=== PATIENT | male | born 1990 | race Hispanic/Latino ===

== ENCOUNTER 2020-05-05 15:02 | Emergency (ER) | payer SELFPAY ==
[~2020-05-05] VITALS: Ht 160 cm; Wt 72.7 kg
[2020-05-05 16:35] LABS: HEMATOCRIT 38.9 % (39.0-50.0); HEMOGLOBIN 13.2 g/dl (14.0-18.0); IMMATURE GRANULOCYTES 0.4 % (0.0-5.0); MEAN CORPUSCULAR HGB 31.2 pG CALC (26.0-32.0); MEAN CORPUSCULAR HGB CONC 33.9 g/dL CAL (32.0-36.0); NEUT# 3.25 thou/uL (1.82-7.42); RED BLOOD COUNT 4.23 mill/uL (4.70-6.10)
[2020-05-05 16:56] LABS: ALBUMIN 4.8 g/dL (3.2-5.0); ALKALINE PHOSPHATASE 86 u/l (38-126); ANION GAP 15 (6-22 (CALC)); BILIRUBIN, TOTAL 0.4 mg/dL (0.0-1.4); BUN 7 mg/dL (9-20); BUN/CREATININE RATIO 13 (12-20 (CALC)); CARBON DIOXIDE 24 mmol/l (22-30); CHLORIDE 107 mmol/l (95-108); CREATININE 0.5 mg/dL (0.7-1.3); GFR > 60 ML/MIN (>=60 (CALC)); GFR FOR AFR.AMER. > 60 ML/MIN (>=60 (CALC)); SGOT/AST 90 u/l (17-59); SODIUM 141 mmol/l (137-146); TOTAL PROTEIN 8.4 g/dL (6.3-8.2)
[2020-05-05 17:04] LABS: ETHYL ALCOHOL 349 mg/dl (0-30)
[2020-05-05] MEDS ORDERED: KEFLEX500 M1 PO (20:39)
[2020-05-05 21:55] VITALS: BP 127/77
== END 2020-05-05 21:53 | disposition home or self-care (01) | DRG 605 ==
LOC: ED 15:02
PROC: 0HQGXZZ Repair Left Hand Skin, External Approach (ICD-10-PCS; principal; 2020-05-05)
DX: S61.311A Laceration without foreign body of left index finger with damage to nail, initial encounter (principal); F10.129 Alcohol abuse with intoxication, unspecified; W26.0XXA Contact with knife, initial encounter; Y93.89 Activity, other specified; Y92.009 Unspecified place in unspecified non-institutional (private) residence as the place of occurrence of the external cause

== ENCOUNTER 2020-05-06 19:10 | Emergency (ER) | payer SELFPAY ==
[~2020-05-06] VITALS: Ht 160 cm; Wt 72.7 kg
[~2020-05-06 19:10] MED LIST: KEFLEX500 M1 PO
[2020-05-06 21:00] VITALS: BP 161/90
== END 2020-05-06 21:00 | disposition home or self-care (01) | DRG 950 ==
LOC: ED 19:10
DX: S61.311D Laceration without foreign body of left index finger with damage to nail, subsequent encounter (principal); X58.XXXD Exposure to other specified factors, subsequent encounter

== ENCOUNTER 2020-05-08 16:48 | Emergency (ER) | payer SELFPAY ==
[~2020-05-08] VITALS: Ht 160 cm; Wt 59.0 kg
[2020-05-08 17:50] VITALS: BP 138/87
== END 2020-05-08 17:50 | disposition home or self-care (01) | DRG 950 ==
LOC: ED 16:48
DX: S61.301D Unspecified open wound of left index finger with damage to nail, subsequent encounter (principal); X58.XXXD Exposure to other specified factors, subsequent encounter